=== PATIENT | male | born 1965 | race Caucasian/White ===

== ENCOUNTER 2017-06-09 12:12 | Emergency (ER) | payer OTHER ==
[~2017-06-09] VITALS: Ht 167.6 cm; Wt 69.8 kg
[2017-06-09] MEDS ORDERED: Atrovent Inha12.9 GM INH (15:29)
[2017-06-09] MEDS ORDERED: BUSP5 PO (15:29)
[2017-06-09] MEDS ORDERED: BUSP15 PO (16:07)
[2017-06-09] MEDS ORDERED: QVAR REDIHALE10.6 G1 INH (16:07)
== END 2017-06-09 16:15 | disposition home or self-care (01) ==
LOC: ER 12:12
DX: F41.9 Anxiety disorder, unspecified (principal); J45.909 Unspecified asthma, uncomplicated; Z79.899 Other long term (current) drug therapy
CPT/HCPCS: 71046; 99283